=== PATIENT | female | born 1935 | race Caucasian/White ===

== ENCOUNTER → 2018-07-02 11:45 | Outpatient (CLI) | payer OTHER, SELFPAY ==
[2018-07-02 13:09] LABS: BUN Creatinine Ratio 16.9 (6-22); Blood Urea Nitrogen 22 mg/dL (7-17); Calcium 9.6 mg/dL (8.4-10.2); Carbon Dioxide 28 mmol/L (22-32); Chloride 102 mmol/L (98-107); Estimated Glomerular Filt Rate 39.3 mL/min (>60); Glucose 127 mg/dL (80-110); HEMOLYSIS < 15 (0-50); Sodium 139 mmol/L (137-145)
[2018-07-02 16:16] LABS: Creatinine Urine Random 96.1 mg/dL
[2018-07-02 16:21] LABS: Microalbumi Creatinin Ratio Ur 22.8 ug/mg CR (<30); Microalbumin Urine Random 2.2 mg/dL (0-1.6)
== END ==
PROVIDERS: PCP Family Medicine; Visit Provider Family Medicine
DX: I10 Essential (primary) hypertension (principal); N28.9 Disorder of kidney and ureter, unspecified; R73.03 Prediabetes
CPT/HCPCS: 36415; 80048; 82043; 82570

== ENCOUNTER 2018-10-29 08:38 | Emergency (ER) | payer OTHER, SELFPAY ==
[2018-10-29 08:43] VITALS: BP 135/65; PULSE 90; RESP 22; TEMP 36.5; O2SAT 92; BMI 23.3
--- NOTE | 2018-10-29 08:48 | DI.RAD.S_ITS ---
PROCEDURE: XR CHEST 2V INDICATIONS: shortness of breath TECHNIQUE: 2 views of the chest were acquired. COMPARISON: [facility], , CHEST 2 VIEW, 10/16/2012, 11:28. FINDINGS: Surgical changes and devices: None. Lungs and pleura: Lungs are clear. No pleural effusions or pneumothorax. Lungs are hyperexpanded. Mediastinum: Mediastinal contours are normal. Heart size is normal. Bones and chest wall: No suspicious bony abnormalities. Soft tissues appear unremarkable. Calcifications are noted overlying the left upper quadrant, possibly splenic and are unchanged. IMPRESSION: Hyperexpansion suggestive of COPD. No effusions or consolidations. Dictated by: Toshia Rosas M.D. on 10/29/2018 at 9:25 Approved by: Toshia Rosas M.D. on 10/29/2018 at 9:26
--- NOTE | 2018-10-29 09:09 | PC.NURSE ---
Pt concerned about dehydration. Has not been eating and drinking well for couple months. Food not tasting well. Reports consumption of cookies, cream puffs and fruit mainly. Patient reports difficulty with emptying bladder. Increase SOB with movement
[2018-10-29 09:12] LABS: Add Manual Diff / Slide Review NO; Basophils Absolute Auto 0 /uL (0-100); Basophils Percent Auto 0.9 % (0-2); Eosinophils Absolute Auto 100 /uL (0-450); Eosinophils Percent Auto 1.6 % (2-4); Hematocrit 39.2 % (36-46); Hemoglobin 12.9 g/dL (12.0-16.0); Lymphocytes Absolute Auto 1000 /uL (1100-4500); Lymphocytes Percent Auto 20.3 % (25-40); Mean Corpuscular Hemoglobin 28.3 PG (26-34); Monocytes Absolute Auto 400 /uL (0-900); Monocytes Percent Auto 8.2 % (3-14); Neutrophils Absolute Auto 3500 /uL (1500-7000); Platelet Count 167 X10^3/uL (150-400); Red Blood Cell Count 4.56 X10^6/uL (4.0-5.2); Red Cell Distribution Width 14.6 % (11.6-14.8); White Blood Cell Count 5.1 X10^3/uL (4.5-11.0)
--- NOTE | 2018-10-29 09:13 | ED.SOB ---
HPI - SOB/Dyspnea General Chief Complaint: Shortness of Breath/Dyspnea Stated Complaint: feels dehydrated,rapid heart rate Time Seen by Provider: 10/29/18 08:49 Source: patient Mode of arrival: ambulatory Limitations: no limitations History of Present Illness Patient presents emergency department complaining that she feels that she may be dehydrated. Patient states she has a history of COPD, and uses oxygen at night and as needed at home. She states that she has been on 4 L when she does use it, and that she was instructed to use this amount. Patient denies any new cough. She denies any new shortness of breath. She states that she does have some dyspnea on exertion lately, and has felt generally more tired for the last 2 months. She states she has been laying in bed a lot. She denies nausea or vomiting. No fevers. No diarrhea. She states that over the last few weeks she has been noticing that instead of urinating a large amount once and then not having to go for a while, she has been having frequent urge to urinate, but has only been able to go a small bit at a time. Patient denies dysuria. No abdominal pain. No flank pain. No back pain. Patient states that she has been taking a lot of Mucinex to try to clear out her sinuses, and that the only time she drinks water is when she takes her Mucinex doses. Patient also states that she has not felt up to cooking, so she has just been buying fruit and pastries and eating those for the last couple of months. She states she only has a hot meal about once a week. Patient states that she lives on her own. She has a daughter out on concrete who comes and checks on her sometimes. Patient states that she gets her mail a couple of times a week to avoid having to walk to the mailbox. Patient states that she feels it is working out ?fine? to live at home on her own. No other complaints at this time. Related Data Home Medications Medication Instructions Recorded Confirmed naproxen sodium 220 mg capsule See Rx Instructions PO BID PRN 07/10/18 10/29/18 Disabled Parking Permit 1 dev MISCELLANEOUS DIRECTED 10/29/18 10/29/18 Nebulizer: Home Unit 0 dev IH DIRECTED 10/29/18 10/29/18 aspirin 81 mg PO DAILY 10/29/18 10/29/18 hydrochlorothiazide 12.5 mg PO QPM 10/29/18 10/29/18 lisinopril 10 mg PO DAILY 10/29/18 10/29/18 simvastatin 40 mg PO BEDTIME 10/29/18 10/29/18 Previous Rx's Medication Instructions Recorded fluticasone propion. 113 1 inhalation INHALATION BID #1 each 07/11/18 mcg/actuation breath activated powder inhaler albuterol sulfate HFA 90 2 puff INHALATION Q6H PRN #8 gram 10/15/18 mcg/actuation aerosol inhaler ipratropium bromide 0.02 % 2.5 ml CONTINUOUS NEBULIZATION QID 10/18/18 solution for inhalation #360 ml Allergies Allergy/AdvReac Type Severity Reaction Status Date / Time No Known Drug Allergies Allergy Verified 10/29/18 08:43 Review of Systems Constitutional Denies chills, Denies fever(s), Denies lethargy and Denies weakness Eyes Denies change in vision, Denies eye discharge, Denies irritation and Denies loss of vision ENT Ears, Nose, Mouth, and Throat: Denies change in voice, Denies neck pain and Denies sore throat Cardiovascular Denies chest pain, Denies irregular heart rhythm, Denies lightheadedness, Reports palpitations, Denies dyspnea, Reports dyspnea on exertion and Denies orthopnea Respiratory Denies cough, Denies dyspnea, Reports dyspnea on exertion and Denies wheezing Gastrointestinal Gastrointestinal: Denies abdominal pain, Denies change in bowel habits, Denies diarrhea, Denies nausea and Denies vomiting Genitourinary Denies hematuria, Denies flank pain, Denies urinary incontinence and Denies urinary urgency Musculoskeletal Denies neck pain Integumentary/Breasts Denies pruritus, Denies erythema, Denies rash and Denies wounds Neurologic Denies confusion, Denies loss of vision and Denies weakness Psychiatric Denies anxiety, Denies confusion, Denies depression, Denies homicidal ideation and Denies suicidal ideation Endocrine Reports palpitations Hematologic/Lymphatic Denies easy bruising Allergic/Immunologic Denies wheezing [facility] Medical History Hypertension (Chronic) Anxiety (Chronic) COPD (chronic obstructive pulmonary disease) (Chronic) Depression (Chronic) Hyperlipidemia (Chronic) Osteoporosis (Chronic) Screening declined by patient (Chronic) Smoker (Chronic) Fracture of left humerus (Resolved) Surgical History History of cataract removal with insertion of prosthetic lens (Resolved 2015) Hx of BSO (bilateral salpingo-oophorectomy) (Resolved 2007) Family History Mother Colon cancer Social History marital status: household members: none lives independently: Yes caregiver/support person: No housing: house Smoking Status: Current every day smoker quit status: not considering quitting alcohol intake: never substance use type: marijuana Family History Mother Colon cancer Social History marital status: household members: none lives independently: Yes caregiver/support person: No housing: house Smoking Status: Current every day smoker quit status: not considering quitting alcohol intake: never substance use type: marijuana Exam Narrative Exam Narrative: Patient is extremely well appearing in the emergency department. She is bright and alert, with quick verbal responses. When asked to sit up for the respiratory exam, patient sits up briskly without any assistance. Initial Vital Signs Initial Vital Signs: Vital Signs Temperature 97.7 F 10/29/18 08:43 Pulse Rate 90 10/29/18 08:43 Respiratory Rate 22 10/29/18 08:43 Blood Pressure 135/65 10/29/18 08:43 Pulse Oximetry 92 10/29/18 08:43 Const General: cooperative and well developed Nutritional Appearance: well nourished Orientation: alert, awake, oriented x3 and not confused [facility] Head: normocephalic and atraumatic Ears: external ears normal Nose: external nose normal and No nasal discharge Face and sinus: face symmetric and No dry mucous membranes Mouth: oral mucosae normal and moist mucous membranes Teeth and gingiva: dentition normal Eyes General: appearance normal, both eyes and all related structures Eyelids: eyelids normal Conjunctivae: conjunctivae normal Sclera: sclerae normal Pupils: PERRL EOM: EOM intact bilaterally Neck Neck: normal visual inspection, trachea midline, No lymphadenopathy, No midline deformity and No JVD Lymphatic: No lymphedema Chest Chest: normal inspection of the chest Resp Effort & Inspection: normal respiratory effort, able to speak in complete sentences, no respiratory distress and no use of accessory muscles Auscultation: clear to auscultation bilaterally, no rales, no rhonchi and no wheezes Cardio Rate: regular rate Rhythm: regular rhythm Heart Sounds: no click, no gallops, no murmurs and no rubs Pulses: normal peripheral pulses GI Inspection: non-distended Palpation: soft, no hepatosplenomegaly, No guarding, No pulsatile mass and No tender Auscultation: normal bowel sounds Back/Spine/Pelvis Back: No CVA tenderness Cervical Spine: cervical ROM normal and No pain with cervical ROM Thoracic/Lumbar Spine: thoracic and lumbar spine normal to inspection Skin General: no rashes or lesions noted, No jaundice and No petechiae Neuro General: alert, oriented x3, gait normal and no focal motor deficits Speech: speech normal Extrem General: full ROM, no clubbing, cyanosis or edema, no pedal edema and no calf tenderness Psych Appearance: well kempt Mental Status: mental status grossly normal Attitude: cooperative Thought Content: normal and suicidality Judgment: judgment good Course Course Narrative: The patient was very well-appearing in the emergency department, but I did suspect she may have a UTI. Her oxygen saturation was excellent on room air with a baseline saturation of 94-95%, going up to 98% with respiratory exam. I discussed a number of issues with the patient including that she most likely is not getting enough fluid to drink, though she is not profoundly dehydrated, based on her normal blood pressure and normal heart rate. I also discussed with her the importance of getting a nutritious diet, which it seems the patient has not been. I have discussed with her that this lack of nutrition will make her feel fatigued and low on energy. The patient is using a very high amount of oxygen at home when she does use it, and I have discussed with her that I do not see a reason for her to be on such a high level. I have discussed with her that she should talk with her primary care physician about whether 4 L of oxygen are truly appropriate for her. I have worked the patient up today in the emergency department with labs, UA, and chest x-ray. She has been given a 1 L bolus of 0.9 normal saline. Patient was found to be feeling much better after IV fluids. Her laboratory studies were unremarkable. I felt the patient was stable for discharge home. We have discussed the usual indications for return. Orders Ordered: Discontinued Medications Albuterol (Ventolin) 2.5 mg INH [id number] PRN PRN Reason: Shortness Of Breath Last Admin: 10/29/18 12:10 Dose: 2.5 mg Sodium Chloride (Normal Saline 0.9%) 1,000 mls @ 1,000 mls/hr IV BOLUS ONE Stop: 10/29/18 11:47 Last Infusion: 10/29/18 12:30 Dose: 0 mls/hr Admin: 10/29/18 10:59 Dose: 1,000 mls/hr Vital Signs - 8 hr 10/29/18 08:43 Temperature 97.7 F Pulse Rate 90 Respiratory Rate 22 Blood Pressure 135/65 Pulse Oximetry 92 MDM - SOB/Dyspnea Medical Records Attestation: I reviewed the patient's medical records. Lab Data Attestation: I reviewed the patient's lab results. Result diagrams: 10/29/18 09:00 10/29/18 09:00 Lab Results 10/29/18 10/29/18 10/29/18 Range/Units 09:00 09:00 09:00 WBC 5.1 (4.5-11.0) X10^3/uL RBC 4.56 (4.0-5.2) X10^6/uL Hgb 12.9 (12.0-16.0) g/dL Hct 39.2 (36-46) % MCV 86.0 (80-100) fL MCH 28.3 (26-34) PG MCHC 33.0 (30-36) % RDW 14.6 (11.6-14.8) % Plt Count 167 (150-400) X10^3/uL Neut % (Auto) 69.0 (50-75) % Lymph % (Auto) 20.3 L (25-40) % Mcdonough % (Auto) 8.2 (3-14) % Eos % (Auto) 1.6 L (2-4) % Baso % (Auto) 0.9 (0-2) % Neut # (Auto) 3500 (7288-2893) /uL Lymph # (Auto) 1000 L (9402-3539) /uL Mcdonough # (Auto) 400 (0-900) /uL Eos # (Auto) 100 (0-450) /uL Baso # (Auto) 0 (0-100) /uL Sodium 135 L (137-145) mmol/L Potassium 4.3 (3.4-5.1) mmol/L Chloride 100 (98-107) mmol/L Carbon Dioxide 28 (22-32) mmol/L BUN 26 H (7-17) mg/dL Creatinine 1.50 H (0.52-1.04) mg/dL Estimated GFR 33.3 L (>60) mL/min BUN/Creatinine Ratio 17.3 (6-22) Glucose 139 H (80-110) mg/dL Lactate 2.0 (0.7-2.1) mmol/L Calcium 9.2 (8.4-10.2) mg/dL Total Bilirubin 0.3 (0.2-1.3) mg/dL AST 16 (14-36) IU/L ALT < 6 L (9-52) IU/L Alkaline Phosphatase 92 (38-126) U/L B-Natriuretic Peptide (<100) Total Protein 7.3 (6.3-8.2) g/dL Albumin 4.0 (3.5-5.0) g/dL Globulin 3.3 (1.7-4.1) g/dL Albumin/Globulin Ratio 1.2 (1.0-2.8) TSH (0.47-4.68) uIU/mL Urine Color Urine Appearance Urine pH (4.5-8.0) Ur Specific [place] (1.000-1.035) Urine Protein (Negative) Urine Glucose (UA) (Negative) g/dL Urine Ketones (NEGATIVE) Urine Occult Blood (Negative) Urine Nitrate (Negative) Urine Bilirubin (NEGATIVE) Urine Urobilinogen (0.2) E.U./dL Ur Leukocyte Esterase (NEGATIVE) Urine RBC (0-5/HPF) Urine WBC (0-5/HPF) Ur Squamous Epith Cells (0-5/HPF) Amorphous Sediment Urine Bacteria (None) Urine Yeast (None) Ur Culture Indicated? 10/29/18 10/29/18 10/29/18 Range/Units 09:00 09:09 12:00 WBC (4.5-11.0) X10^3/uL RBC (4.0-5.2) X10^6/uL Hgb (12.0-16.0) g/dL Hct (36-46) % MCV (80-100) fL MCH (26-34) PG MCHC (30-36) % RDW (11.6-14.8) % Plt Count (150-400) X10^3/uL Neut % (Auto) (50-75) % Lymph % (Auto) (25-40) % Mcdonough % (Auto) (3-14) % Eos % (Auto) (2-4) % Baso % (Auto) (0-2) % Neut # (Auto) (0507-1328) /uL Lymph # (Auto) (1286-6739) /uL Mcdonough # (Auto) (0-900) /uL Eos # (Auto) (0-450) /uL Baso # (Auto) (0-100) /uL Sodium (137-145) mmol/L Potassium (3.4-5.1) mmol/L Chloride (98-107) mmol/L Carbon Dioxide (22-32) mmol/L BUN (7-17) mg/dL Creatinine (0.52-1.04) mg/dL Estimated GFR (>60) mL/min BUN/Creatinine Ratio (6-22) Glucose (80-110) mg/dL Lactate (0.7-2.1) mmol/L Calcium (8.4-10.2) mg/dL Total Bilirubin (0.2-1.3) mg/dL AST (14-36) IU/L ALT (9-52) IU/L Alkaline Phosphatase (38-126) U/L B-Natriuretic Peptide < 100 (<100) Total Protein (6.3-8.2) g/dL Albumin (3.5-5.0) g/dL Globulin (1.7-4.1) g/dL Albumin/Globulin Ratio (1.0-2.8) TSH 3.96 (0.47-4.68) uIU/mL Urine Color Yellow Urine Appearance Clear Urine pH 5.5 (4.5-8.0) Ur Specific [place] 1.010 (1.000-1.035) Urine Protein Negative (Negative) Urine Glucose (UA) Negative (Negative) g/dL Urine Ketones Negative (NEGATIVE) Urine Occult Blood Negative (Negative) Urine Nitrate Negative (Negative) Urine Bilirubin Negative (NEGATIVE) Urine Urobilinogen 0.2 (0.2) E.U./dL Ur Leukocyte Esterase Negative (NEGATIVE) Urine RBC 0-1/hpf (0-5/HPF) Urine WBC 0-1/hpf (0-5/HPF) Ur Squamous Epith Cells 5-10 /hpf H (0-5/HPF) Amorphous Sediment 1+ Urine Bacteria Moderate (10-30) H (None) Urine Yeast 0-1/hpf (None) Ur Culture Indicated? Cult not indicated Imaging Data Chest x-ray: Radiologist's impression: PROCEDURE: XR CHEST 2V INDICATIONS: shortness of breath TECHNIQUE: 2 views of the chest were acquired. COMPARISON: [facility], , CHEST 2 VIEW, 10/16/2012, 11:28. FINDINGS: Surgical changes and devices: None. Lungs and pleura: Lungs are clear. No pleural effusions or pneumothorax. Lungs are hyperexpanded. Mediastinum: Mediastinal contours are normal. Heart size is normal. Bones and chest wall: No suspicious bony abnormalities. Soft tissues appear unremarkable. Calcifications are noted overlying the left upper quadrant, possibly splenic and are unchanged. IMPRESSION: Hyperexpansion suggestive of COPD. No effusions or consolidations. Dictated by: Toshia Rosas M.D. on 10/29/2018 at 9:25 Approved by: Toshia Rosas M.D. on 10/29/2018 at 9:26 ECG Data Attestation: I personally reviewed and interpreted this ECG as follows: (See below) Interpretation: Twelve lead EKG performed 09/23/2018 at 8:46 a.m., as follows: Regular ventricular rhythm with a rate of 86 beats per minute MS interval 149 millisecond QRS duration 73 millisecond QTC interval 385 millisecond Normal axis No significant ST T wave changes Interpretation: Normal sinus rhythm; low QRS voltage in precordial leads; no signs of acute ischemia; borderline EKG as interpreted by ED MD. Discharge Plan Departure Patient Disposition: Home Clinical Impression: Fatigue Qualifiers: Fatigue type: chronic, unspecified Qualified Code(s): R53.82 - Chronic fatigue, unspecified Discharge Date/Time: 10/29/18 13:10 Interventions: ED Discharge Assessment Last Done: 10/29/18 13:23 Instructions: DI for Chronic Fatigue Syndrome Activity Restrictions/Additional Instructions: Your labs look good. Your analysis is also normal. You have probably been somewhat dehydrated from lack of proper fluid intake. It is very important that you drink about 8 cups water every day. You may substitute 1 of these with Gatorade, but otherwise, you should be drinking plenty of water. Other beverages should be on top of this, and not a substitute for it. It is also important that you eat a better diet. The fruit is very helpful, but if you're eating only pastries otherwise, you are not getting the nutrition you need. Please follow up with your primary doctor for further issues regarding this. No emergent condition has been identified today. Prescriptions: No Action fluticasone propionate 113 mcg/actuation aerosol powdr breath activated 1 inhalation INHALATION BID Qty: 1 RF: 2 albuterol sulfate 90 mcg/actuation HFA aerosol inhaler 2 puff INHALATION Q6H PRN (Reason: shortness of breath or wheezing) Qty: 8 RF: 0 ipratropium bromide 0.02 % solution 2.5 ml Continuous Nebulization QID Qty: 360 RF: 3 naproxen sodium [Aleve] 220 mg capsule See Patient Comments PO BID PRN (Reason: pain) RF: 0 simvastatin 40 mg tablet 40 mg PO BEDTIME RF: 0 lisinopril 10 mg tablet 10 mg PO DAILY RF: 0 hydrochlorothiazide 25 mg tablet 12.5 mg PO QPM RF: 0 aspirin 81 mg Tablet,Delayed Release (Dr/Ec) 81 mg PO DAILY RF: 0 Disabled Parking Permit 1 dev miscellaneous DIRECTED RF: 0 Nebulizer: Home Unit IH DIRECTED RF: 0 Referrals: Nicole Morales MD [Primary Care Provider] -
[2018-10-29 09:24] LABS: Albumin Globulin Ratio 1.2 (1.0-2.8); Alkaline Phosphatase 92 U/L (38-126); Aspartate Aminotransferase 16 IU/L (14-36); BUN Creatinine Ratio 17.3 (6-22); Bilirubin Total 0.3 mg/dL (0.2-1.3); Blood Urea Nitrogen 26 mg/dL (7-17); Calcium 9.2 mg/dL (8.4-10.2); Carbon Dioxide 28 mmol/L (22-32); Chloride 100 mmol/L (98-107); Estimated Glomerular Filt Rate 33.3 mL/min (>60); Globulin 3.3 g/dL (1.7-4.1); Glucose 139 mg/dL (80-110); HEMOLYSIS < 15 (0-50); Potassium 4.3 mmol/L (3.4-5.1); Sodium 135 mmol/L (137-145); Total Protein 7.3 g/dL (6.3-8.2)
[2018-10-29 09:26] LABS: Alanine Aminotransferase < 6 IU/L (9-52)
[2018-10-29 09:46] LABS: B Type Natriuretic Peptide < 100 (<100)
[2018-10-29 10:14] LABS: Thyroid Stimulating Hormone 3.96 uIU/mL (0.47-4.68)
[2018-10-29 10:15] VITALS: BP 102/56; PULSE 84; RESP 13; O2SAT 93
[2018-10-29] MEDS: SODIUM CHLORIDE 0.9% 1,000 ML 1000 ML IV (10:59)
[2018-10-29 11:25] VITALS: BP 134/66; PULSE 79; RESP 15; O2SAT 91
[2018-10-29 12:10] LABS: Appearance Urine UA CLEAR; Bilirubin Urine UA NEGATIVE (NEGATIVE); Color Urine UA YELLOW; Glucose Urine UA NEGATIVE (Negative); Ketones Urine UA NEGATIVE (NEGATIVE); Leukocyte Esterase Urine UA NEGATIVE (NEGATIVE); Nitrite Urine UA NEGATIVE (Negative); Occult Blood Urine UA NEGATIVE (Negative); Protein Urine UA NEGATIVE (Negative); Urobilinogen Urine UA 0.2 E.U./dL (0.2); pH Urine UA 5.5 (4.5-8.0)
[2018-10-29] MEDS: ALBUTEROL 2.5 MG/3 ML NEB (ADULT) INH (12:10)
[2018-10-29 12:11] VITALS: PULSE 82; O2SAT 96
[2018-10-29 12:18] VITALS: BP 138/63; PULSE 82; RESP 16; O2SAT 99
[2018-10-29 12:25] LABS: RBC Urine 0-1/HPF (0-5/HPF); Squamous Epithelial Cell Urine 5-10 /HPF (0-5/HPF); WBC Urine 0-1/HPF (0-5/HPF)
[2018-10-29 12:26] LABS: Amorphous Sediment Urine 1+; Bacteria Urine Moderate (10-30); Culture Indicated Urine Cult Not Indicated
== END 2018-10-29 13:10 | disposition home or self-care (01) ==
PROVIDERS: Emergency Provider Emergency Medicine; PCP Family Medicine
DX: R53.82 Chronic fatigue, unspecified (principal); R06.02 Shortness of breath; R00.0 Tachycardia, unspecified; R00.2 Palpitations
CPT/HCPCS: 36591; 71046; 80053; 81001; 83605; 83880; 84443; 85025; 93005; 93010; 94640; 96360; 96361; 99283; 99285; J7613

== ENCOUNTER → 2020-02-06 07:14 | Outpatient (CLI) | payer OTHER, SELFPAY ==
[2020-02-06 07:43] LABS: Hemoglobin A1C% w Est Avg Glu 5.5 % (4.0-6.0)
[2020-02-06 08:11] LABS: Alanine Aminotransferase 8 IU/L (<35); Albumin 3.7 g/dL (3.5-5.0); Albumin Globulin Ratio 1.2 (1.0-2.8); Alkaline Phosphatase 97 U/L (38-126); Aspartate Aminotransferase 18 IU/L (14-36); BUN Creatinine Ratio 16.8 (6-22); Bilirubin Total 0.5 mg/dL (0.2-1.3); Blood Urea Nitrogen 19 mg/dL (7-17); Calcium 9.1 mg/dL (8.4-10.2); Carbon Dioxide 32 mmol/L (22-32); Chloride 103 mmol/L (98-107); Cholesterol 144 mg/dL (140-199); Estimated Glomerular Filt Rate 46.1 mL/min (>60); Globulin 3.2 g/dL (1.7-4.1); Glucose 109 mg/dL (80-110); HDL Cholesterol 57 mg/dL (40-60); HEMOLYSIS < 15 (0-50); LDL Cholesterol Calculated 61 mg/dL (<100); Potassium 4.2 mmol/L (3.4-5.1); Sodium 139 mmol/L (137-145); Total Protein 6.9 g/dL (6.3-8.2); Triglycerides 132 mg/dL (35-150)
== END ==
PROVIDERS: PCP Family Medicine; Referring Provider Family Medicine; Visit Provider Family Medicine
DX: R73.03 Prediabetes (principal); I10 Essential (primary) hypertension
CPT/HCPCS: 36415; 80053; 80061; 83036

== ENCOUNTER → 2020-02-07 11:37 | Outpatient (CLI) | payer OTHER, SELFPAY ==
[2020-02-07 13:47] LABS: Creatinine Urine Random 53.3 mg/dL
[2020-02-07 13:51] LABS: Microalbumin Urine Random 0.8 mg/dL (0-1.6)
== END ==
PROVIDERS: PCP Family Medicine; Referring Provider Family Medicine; Visit Provider Family Medicine
DX: I10 Essential (primary) hypertension (principal)
CPT/HCPCS: 82043; 82570

== ENCOUNTER → 2021-07-27 08:01 | Outpatient (CLI) | payer OTHER, SELFPAY ==
[2021-07-27 08:39] LABS: Hemoglobin A1C% w Est Avg Glu 5.4 % (4.0-6.0)
[2021-07-27 09:36] LABS: Alanine Aminotransferase 8 IU/L (<35); Albumin 3.9 g/dL (3.5-5.0); Albumin Globulin Ratio 1.2 (1.0-2.8); Alkaline Phosphatase 71 U/L (38-126); Aspartate Aminotransferase 19 IU/L (14-36); BUN Creatinine Ratio 15.8 (6-22); Bilirubin Total 0.5 mg/dL (0.2-1.3); Blood Urea Nitrogen 28 mg/dL (7-17); Calcium 9.3 mg/dL (8.4-10.2); Carbon Dioxide 30 mmol/L (22-32); Chloride 104 mmol/L (98-107); Cholesterol 164 mg/dL (140-199); Estimated Glomerular Filt Rate 27.3 mL/min (>60); Globulin 3.2 g/dL (1.7-4.1); Glucose 111 mg/dL (80-110); HDL Cholesterol 60 mg/dL (40-60); HEMOLYSIS < 15 (0-50); LDL Cholesterol Calculated 81 mg/dL (<100); Potassium 4.4 mmol/L (3.4-5.1); Sodium 139 mmol/L (137-145); Total Protein 7.1 g/dL (6.3-8.2); Triglycerides 114 mg/dL (35-150)
== END ==
PROVIDERS: PCP Family Medicine; Referring Provider Family Medicine; Visit Provider Family Medicine
DX: R73.03 Prediabetes (principal); I10 Essential (primary) hypertension
CPT/HCPCS: 36415; 80053; 80061; 83036

== ENCOUNTER → 2021-07-29 09:47 | Outpatient (CLI) | payer OTHER, SELFPAY ==
[2021-07-29 11:39] LABS: Creatinine Urine Random 96.6 mg/dL
[2021-07-29 11:42] LABS: Microalbumi Creatinin Ratio Ur 14.4 ug/mg CR (<30); Microalbumin Urine Random 1.4 mg/dL (0-1.6)
== END ==
PROVIDERS: PCP Family Medicine; Referring Provider Family Medicine; Visit Provider Family Medicine
DX: I10 Essential (primary) hypertension (principal)
CPT/HCPCS: 82043; 82570

== ENCOUNTER 2023-01-19 16:40 | Emergency (ER) | payer OTHER, SELFPAY ==
[2023-01-19 16:56] VITALS: BP 105/54; PULSE 103; RESP 18; TEMP 36.7; O2SAT 95; BMI 19.1
--- NOTE | 2023-01-19 18:23 | ED_ITS ---
HPI - Back Pain/Injury General Chief Complaint: Back Pain/Injury Stated Complaint: Threw back out Time Seen by Provider: 01/19/23 18:05 Source: patient History of Present Illness HPI Narrative: 87-year-old female smoker with COPD and hyperlipidemia presents with family in the chief complaint of low back pain for the past week or so. She states that on labor day she was lifting a heavy mattress while bending and twisting and felt a sudden onset of pain in her low back that radiates around into her hip and her anterior thigh on the right side. She denies numbness, tingling or weakness. She states the pain is sharp burning and seems to be made worse when she moves and is made better when she rests. She denies fever or chills and takes no blood thinners. She denies any direct trauma to her low back. She denies loss of control of bowel or bladder Related Data Home Medications Medication Instructions Recorded Confirmed naproxen sodium 220 mg capsule See Rx Instructions PO BID PRN pain 07/10/18 07/25/21 (Aleve) Nebulizer: Home Unit 0 dev IH DIRECTED 10/29/18 07/25/21 aspirin 81 mg tablet,delayed 81 mg PO DAILY 10/29/18 07/25/21 release sodium chloride 2 % eye drops drp EYE-BOTH 07/25/21 07/25/21 (Cruz 128) Previous Rx's Medication Instructions Recorded fluticasone propionate 113 1 inhalation inhalation BID #1 ea 07/11/18 mcg/actuation breath activated powder inhaler Disabled Parking #1 ea 07/25/21 ipratropium bromide 0.02 % See Rx Instructions .Route 08/29/22 solution for inhalation .COMPLEX #900 mL hydrochlorothiazide 25 mg tablet See Rx Instructions .Route 10/03/22 .COMPLEX #90 tabs lisinopril 10 mg tablet See Rx Instructions .Route 10/03/22 .COMPLEX #90 tabs simvastatin 40 mg tablet See Rx Instructions .Route 10/03/22 .COMPLEX #90 tabs cyclobenzaprine 10 mg tablet 10 mg PO TID PRN muscle spasm #14 01/19/23 tabs gabapentin 300 mg capsule 300 mg PO BEDTIME #14 caps 01/19/23 hydrocodone 5 mg-acetaminophen 325 1 tab PO Q4-6H PRN pain #10 tabs 09/15/23 mg tablet ketorolac 10 mg tablet 10 mg PO Q6H PRN pain #14 tabs 01/19/23 methylprednisolone 4 mg tablets in See Rx Instructions PO .COMPLEX 01/19/23 a dose pack (Medrol (Brett)) #21 ea Allergies Allergy/AdvReac Type Severity Reaction Status Date / Time No Known Drug Allergies Allergy Verified 01/19/23 17:02 Review of Systems Review of Systems Narrative: GENERAL: Denies chills, fatigue, malaise, fever, sweats. HEENT: Denies sinus pain, ear pain, sore throat, difficulty swallowing, dizziness. RESPIRATORY: Denies dyspnea, cough, wheezing, hemoptysis, sputum. CARDIOVASCULAR: Denies chest pain, palpitations, orthopnea, edema, GASTROINTESTINAL: Denies nausea, vomiting, abdominal pain, diarrhea, constipation, melena. : Denies dysuria, frequency, incontinence, hematuria, urinary retention. MUSCULOSKELETAL: See HPI SKIN: Denies rash, skin lesions, or other NEUROLOGIC: Denies weakness, headache, numbness, change in speech, confusion, seizures, incoordination. PSYCHIATRIC: No concerning psychosocial issues. 12 point review of systems is negative except for those stated above Patient History Medical History Anxiety COPD (chronic obstructive pulmonary disease) Depression Fracture of left humerus Hyperlipidemia Hypertension Osteoporosis Screening declined by patient Smoker Surgical History History of cataract removal with insertion of prosthetic lens (2015) Hx of BSO (bilateral salpingo-oophorectomy) (2007) Family History Mother Colon cancer Social History marital status: household members: none lives independently: Yes caregiver/support person: No housing: house Smoking Status: Current every day smoker quit status: not considering quitting alcohol intake: never substance use type: marijuana Smoking Status: Current every day smoker tobacco type: cigarettes alcohol intake frequency: 0-2 drinks per day Substance Use Type: does not use Exam Narrative Exam Narrative: GEN: AOx3 and in mild distress EYES: Pupils are equal, round, and reactive to light and accommodation. Extraoccular muscles are intact bilaterally. There is no subconjunctival hemorrhage or exudate. CHEST: Decreased lung sounds bilaterally with prolonged expiratory phase, patient at baseline respiratory status, no tachypnea or hypoxemia. Heart rate is regular rhythm, there are no murmurs, clicks, rubs, or gallops. There is no chest wall tenderness. ABD: Abdomen is soft and nontender. There is no guarding or rebound. Bowel sounds are normal in all 4 quadrants. There is no mass or organomegaly. BACK: grout machine tender but free of any obvious external abnormalities. Patient exam notes decreased range of motion and muscle spasm, but no CVA tenderness, or vertebral point tenderness. There are no symptoms of cauda equina such as saddle anesthesia, and decreased reflexes, decreased sensation or strength. EXT: Full painless ROM of all extremities with no loss of sensation or strength. SKIN: Warm, pink, and dry. No erythema or rash Initial Vital Signs Initial Vital Signs: Vital Signs Temperature 98.1 F 01/19/23 16:56 Pulse Rate 103 H 01/19/23 16:56 Respiratory Rate 18 01/19/23 16:56 Blood Pressure 105/54 L 01/19/23 16:56 Pulse Oximetry 95 01/19/23 16:56 Oxygen Delivery Method Room Air 01/19/23 16:56 Course Orders Ordered: ED Orders 01/19/23 18:30 XR lumbar spine 2-3V Stat Discontinued Medications Hydrocodone Bitart/Acetaminophen (Hydrocodone/Acet 5/325 Tablet) 1 tab PO NOW ONE Stop: 01/19/23 18:31 Last Admin: 01/19/23 18:36 Dose: 1 tab Documented By: SB Vital Signs Vital signs: Vital Signs - 8 hr 01/19/23 20:03 Pulse Rate 95 H Blood Pressure 118/67 Pulse Oximetry 95 Oxygen Delivery Method Room Air MDM - Back Pain/Injury MDM Narrative Medical decision making narrative: [87] year old patient presents with low back pain that radiates into her right hip and anterior thigh Multiple etiologies for patient's symptoms considered including, but not limited to: [Lumbar spasm versus radiculopathy versus cauda equina versus other] Prior Charts reviewed in our EMR Primary Historian: patient Imaging reviewed: L Spine Xray without significant acute findings, chronic L3 fracture noted Patient's symptoms improved over duration of stay with above-stated therapies. No signs of cauda equina, pain well controlled Findings and discharge diagnosis discussed with patient/family followed by verbalization of understanding Return precautions discussed with patient/family whom verbalize understanding of diagnosis and plan Discharge Plan Departure Patient Disposition: Home Clinical Impression: Acute lumbar radiculopathy Instructions: DI for Back Pain With Sciatica Activity Restrictions/Additional Instructions: *You have been diagnosed with [lumbar radiculopathy] *What to do: *Please continue to take your regular medications as directed. [x ] New medication prescriptions sent to your pharmacy: [ [facility]] [ ] New medication written as a paper prescription [ ] No new medications given *Please follow up with your primary care provider in 2-3 days, call for an appointment. Let them know you were seen in the Emergency Department and that we ask that you be seen in follow up. We will electronically transmit a record of today's note if your PCP is in our system *If you do not have a primary care provider please contact the [facility] Resource line at [phone]. They will ask some questions about your medical history and help get you set up with a doctor in the community. *Return to Emergency Department if you should have any new, worsening or concerning symptoms, such as [fever greater than 101 F, shaking chills, worsening pain, persistent vomiting or other bothersome symptoms] Prescriptions: New cyclobenzaprine 10 mg tablet 10 mg PO TID PRN (Reason: muscle spasm) Qty: 14 0RF hydrocodone-acetaminophen 5-325 mg tablet 1 tab PO Q4-6H PRN (Reason: pain) Qty: 10 0RF ketorolac 10 mg tablet 10 mg PO Q6H PRN (Reason: pain) Qty: 14 0RF gabapentin 300 mg capsule 300 mg PO BEDTIME Qty: 14 0RF methylprednisolone [Medrol (Brett)] 4 mg tablets,dose pack See Rx Instructions .ROUTE .COMPLEX Qty: 21 0RF Rx Instructions: orally per package directions No Action Cruz 128 2 % drops EYE-BOTH (DME) Disabled Parking See Rx Instructions .ROUTE .MEDSUPPLY Qty: 1 0RF Rx Instructions: I find this patient to be medically disabled and qualified for Disabled Parking as indicated, and signed, on the Accompanying Disabled Parking Application for Individuals fluticasone propionate 113 mcg/actuation aerosol powdr breath activated 1 inhalation INHALATION BID Qty: 1 2RF Rx Instructions: Rinse mouth with water after use. ipratropium bromide 0.02 % solution See Rx Instructions .ROUTE .COMPLEX Qty: 900 3RF Dose Instruction: Inhale contents of 1 vial (2.5 mL) via nebulizer 4 times daily. *CONTINUOUSLY* Rx Instructions: Inhale contents of 1 vial (2.5 mL) via nebulizer 4 times daily. *CONTINUOUSLY* hydrochlorothiazide 25 mg tablet See Rx Instructions .ROUTE .COMPLEX Qty: 90 3RF Dose Instruction: Take 1 tablet (25 mg) by mouth daily Rx Instructions: Take 1 tablet (25 mg) by mouth daily lisinopril 10 mg tablet See Rx Instructions .ROUTE .COMPLEX Qty: 90 3RF Dose Instruction: Take 1 tablet (10 mg) by mouth daily Rx Instructions: Take 1 tablet (10 mg) by mouth daily simvastatin 40 mg tablet See Rx Instructions .ROUTE .COMPLEX Qty: 90 3RF Dose Instruction: Take 1 tablet (40 mg) by mouth at bedtime Rx Instructions: Take 1 tablet (40 mg) by mouth at bedtime naproxen sodium [Aleve] 220 mg capsule See Rx Instructions PO BID PRN (Reason: pain) Patient Comments: Takes 2 tablets in the morning and one at night for pain PO BID PRN; Rx Instructions: Takes 2 tablets in the morning and one at night for pain PO BID PRN; aspirin 81 mg Tablet,Delayed Release (Dr/Ec) 81 mg PO DAILY Patient Comments: patient states takes mid-day Nebulizer: Home Unit 0 dev IH DIRECTED Referrals: Nicole Morales MD [Primary Care Provider] - Stand Alone Forms: Patient Portal/API
--- NOTE | 2023-01-19 18:30 | DI.RAD.S_ITS ---
PROCEDURE: XR LUMBAR SPINE 2-3V INDICATIONS: back pain TECHNIQUE: 3 views of the lumbar spine were acquired. COMPARISON: [facility], , L-SPINE 2-3 VIEWS, 09/27/2012, 7:59. FINDINGS: Bones: 5 [id number] vertebrae are present. Compression fracture of the L3 vertebral body, approximately 1/4 vertebral body height loss. New since 2012. Moderate multilevel degenerative changes with disc height loss, endplate spurring, and facet arthropathy. Soft tissues: No pathologically dilated gas-filled loops of bowel. Coarse calcifications project over the left abdomen as before. Coarse calcifications also demonstrated projecting over the right abdomen. IMPRESSION: Age-indeterminate compression fracture of L3, new since 2012, could be remote, but recent fracture cannot be excluded. Multilevel degenerative changes of the lumbar spine. Nonspecific soft tissue calcifications project over the abdomen. Cross-sectional imaging and/or follow-up radiographs could be obtained for further evaluation of above findings as clinically indicated. Dictated by: Pramod Chapman M.D. on 01/19/2023 at 19:07 Approved by: Pramod Chapman M.D. on 01/19/2023 at 19:10
[2023-01-19] MEDS: HYDROCODONE/ACET 5/325 TABLET 1 TAB PO (18:36)
[2023-01-19 20:03] VITALS: BP 118/67; PULSE 95; O2SAT 95
== END 2023-01-19 20:03 | disposition home or self-care (01) ==
PROVIDERS: Emergency Provider Emergency Medicine; PCP Family Medicine
DX: M54.16 Radiculopathy, lumbar region (principal)
CPT/HCPCS: 72100; 99283

== ENCOUNTER → 2023-02-03 09:02 | Outpatient (CLI) | payer OTHER, SELFPAY ==
[2023-02-03 09:44] LABS: Add Manual Diff / Slide Review NO; Basophils Absolute Auto 100 /uL (0-100); Basophils Percent Auto 1.9 % (0-2); Eosinophils Absolute Auto 100 /uL (0-450); Eosinophils Percent Auto 2.7 % (2-4); Hematocrit 36.6 % (36-46); Hemoglobin 11.9 g/dL (12.0-16.0); Lymphocytes Absolute Auto 900 /uL (1100-4500); Lymphocytes Percent Auto 30.6 % (25-40); Mean Corpuscular HGB Conc 32.5 % (30-36); Mean Corpuscular Hemoglobin 27.3 PG (26-34); Mean Corpuscular Volume 83.9 fL (80-100); Monocytes Absolute Auto 500 /uL (0-900); Monocytes Percent Auto 16.9 % (3-14); Neutrophils Absolute Auto 1300 /uL (1500-7000); Neutrophils Percent Auto 47.9 % (50-75); Platelet Count 164 X10^3/uL (150-400); Red Blood Cell Count 4.36 X10^6/uL (4.0-5.2); Red Cell Distribution Width 16.7 % (11.6-14.8); White Blood Cell Count 2.8 X10^3/uL (4.5-11.0)
[2023-02-03 10:25] LABS: HEMOLYSIS < 15 (0-50); Sodium 139 mmol/L (137-145)
[2023-02-03 10:26] LABS: Alanine Aminotransferase 11 IU/L (<35); Albumin 3.4 g/dL (3.5-5.0); Alkaline Phosphatase 122 U/L (38-126); Aspartate Aminotransferase 16 IU/L (14-36); BUN Creatinine Ratio 23.4 (6-22); Bilirubin Total 0.7 mg/dL (0.2-1.3); Blood Urea Nitrogen 46 mg/dL (7-17); Calcium 8.8 mg/dL (8.4-10.2); Carbon Dioxide 26 mmol/L (22-32); Chloride 104 mmol/L (98-107); Cholesterol 153 mg/dL (140-199); Estimated Glomerular Filt Rate 24 mL/min (>60); Globulin 3.5 g/dL (1.7-4.1); Glucose 107 mg/dL (80-110); HDL Cholesterol 45 mg/dL (40-60); LDL Cholesterol Calculated 73 mg/dL (<100); Potassium 4.6 mmol/L (3.4-5.1); Total Protein 6.9 g/dL (6.3-8.2); Triglycerides 174 mg/dL (35-150)
[2023-02-03 11:03] LABS: Creatinine Urine Random 122.9 mg/dL
[2023-02-03 11:07] LABS: Microalbumi Creatinin Ratio Ur 8.9 ug/mg CR (<30); Microalbumin Urine Random 1.1 mg/dL (0-1.6)
[2023-02-03 11:14] LABS: Hemoglobin A1C% w Est Avg Glu 5.4 % (4.0-6.0)
== END ==
PROVIDERS: PCP Family Medicine; Referring Provider Family Medicine; Visit Provider Family Medicine
DX: R53.83 Other fatigue (principal); R73.03 Prediabetes; I10 Essential (primary) hypertension
CPT/HCPCS: 36415; 80053; 80061; 82043; 82570; 83036; 84439; 84443; 85025